=== PATIENT | male | born 1985 | race Caucasian/White ===

== ENCOUNTER → 2016-11-18 03:26 | Emergency (ER) | payer SELFPAY ==
[~2016-11-18 03:26] MED LIST: HYDROcodone/ACETAMIN 5-325 MG* 1 TAB PO ONE; Lidocaine 1%* 5 ML VIAL INJ ONE; Lidocaine 1%* 5 ML VIAL ONE; Tetan/Diph/Pertus SYR(Tdap)* 0.5 ML SYR(BOOSTRIX) use SYR IM ONE; ceFAZolin 1 GM ADVAN(*) 1 GM in NS 0.9% 50 ML* 50 ML IVPB ONE
[2016-11-18 04:01] VITALS: BP 163/96
--- NOTE | 2016-11-18 07:59 | ED ---
Davin Baer Alfonso, scribed for Jose Phillips MD on 11/18/16 at 0545 . Upper Extremity Pain - HPI Summary HPI Summary: This patient is a 31 year old M [facility] accompanied by male with a chief complaint of left thumb crushing injury one hour [employer]ENTER [employer]. Pt rates the pain 10 /10 in severity. Symptoms aggravated by movement and alleviated by nothing. Pt reports left thumb pain and bleeding. Patient is right hand dominant. Denies PMHx of DM. - History of Current Complaint Chief Complaint: EDLacSutureRecheck Stated Complaint: THUMB LAC Time Seen by Provider: 11/18/16 03:43 Hx Obtained From: Patient Mechanism Of Injury: Penetrating Trauma Onset/Duration: Started Hours Ago - 1 hr [employer] Timing: Constant Severity Initially: Moderate Severity Currently: Moderate Pain Location: Finger - Left thumb Aggravating Factor(s): Movement Alleviating Factor(s): Nothing Related History: Dominant Hand Right - Allergies/Home Medications Allergies/Adverse Reactions: Allergies Allergy/AdvReac Type Severity Reaction Status Date / Time No Known Allergies Allergy Verified 11/18/16 03:48 PMH/Surg Hx/FS Hx/Imm Hx Endocrine/Hematology History: Denies: Hx Diabetes Sensory History: Denies: Hx Deafness Opthamlomology History: Denies: Hx Legally Blind Infectious Disease History: No Infectious Disease History: Denies: Traveled Outside the [place] in Last 30 Days - Family History Known Family History: Negative: Cardiac Disease, Diabetes - Social History Alcohol Use: Occasionally Substance Use Type: Reports: None Smoking Status (MU): Smoker, Current Status Unknown Review of Systems Negative: Fever Musculoskeletal: Other - Positive left thumb crushing injury, pain, and bleeding. All Other Systems Reviewed And Are Negative: Yes Physical Exam - Summary Physical Exam Summary: The patient is well-nourished in no acute distress and in no acute pain. The skin is warm and dry and skin color reflects adequate perfusion. HEENT: The head is normocephalic and atraumatic. The pupils are equal and reactive. The conjunctivae are clear and without drainage. Nares are patent and without drainage. Mouth reveals moist mucous membranes and the throat is without erythema and exudate. The external ears are intact. The ear canals are patent and without drainage. The tympanic membranes are intact. Neck is supple with full range of motion and non-tender. There are no carotid bruits. There is no neck vein distension. Respiratory: Chest is non-tender. Lungs are clear to auscultation and breath sounds are symmetrical and equal. Cardiovascular: Heart is regular rate and rhythm. There is no murmur or rub auscultated. There is no peripheral edema and pulses are symmetrical and equal. Abdomen: The abdomen is soft and non-tender. There are normal bowel sounds heard in all four quadrants and there is no organomegaly palpated. Musculoskeletal: There is no back pain noted. Extremities are non-tender with full range of motion. Cannot access capillary refill due to there being no nail. There is no peripheral edema or calf tenderness elicited. Good pulses in left hand. Full ROM in thumb and IP joint of thumb. Obvious injury involving nail and nail bed. Laceration through nail bed and tip of finger. Neurological: Patient is alert and oriented to person, place and time. The patient has symmetrical motor strength in all four extremities. Cranial nerves are grossly intact. Deep tendon reflexes are symmetrical and equal in all four extremities. Decreased sensation at left thumb. Psychiatric: The patient has an appropriate affect and does not exhibit any anxiety or depression. 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 Pt rates the pain 10 /10 in severity. Symptoms aggravated by movement and alleviated by nothing. Pt reports left thumb pain and bleeding. Patient is right hand dominant. Denies PMHx of DM. Triage Information Reviewed: Yes Vital Signs On Initial Exam: Initial Vitals Temp Pulse Resp BP Pulse Ox 98.3 F 96 20 172/126 97 11/18/16 03:37 11/18/16 03:37 11/18/16 03:37 11/18/16 03:37 11/18/16 03:37 Vital Signs Reviewed: Yes Procedures - Laceration/Wound Repair 1 Location: upper extremity - Left thumb. Involves nail bed and tip of finger. Tourniquet time 40 minutes. Description: Stellate - Ivulsion Anesthesia: Digital - 6 CC Digital block, 1.0%, Lido Length, Depth and Shape: 4 cm laceration 1 cm wide 4 mm deep. Betadine Prep?: No - hibiclens Irrigated w/ Saline (ccs): 500 Laceration/Wound Explored: contaminated Closure: Single Layer Suture Type: Prolene - 4-0 Number of Sutures: 10 Layer Closure?: No Sterile Dressing Applied?: Yes Diagnostics - Vital Signs Vital Signs Temp Pulse Resp BP Pulse Ox 11/18/16 03:45 99.3 F 99 16 163/96 99 11/18/16 03:37 98.3 F 96 20 172/126 97 - Laboratory Lab Statement: Any lab studies that have been ordered have been reviewed, and results considered in the medical decision making process. - Radiology Hand XRay Radiology Interpretation Completed By: ED Physician - Tuft fracture most likely open. 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 Pt rates the pain 10 /10 in severity. Symptoms aggravated by movement and alleviated by nothing. Pt reports left thumb pain and bleeding. Patient is right hand dominant. Denies PMHx of DM. Hand XR reveals tuft fracture most likely open. Patient will be discharged with Hammond, Keflex, and follow up from Dr. Deras in two days. Pt is agreeable with this plan. - Diagnoses Differential Diagnosis/HQI/PQRI: Positive: Fracture (Open), Laceration Provider Diagnoses: Open fracture of tuft of distal phalanx of left thumb, 4 cm nail bed laceration with repair, evulsion laceration Discharge - Discharge Plan Condition: Stable Disposition: HOME Prescriptions: Cephalexin CAP* [Keflex 500 CAP*] 500 mg PO QID #28 cap Hydrocodone-Acetaminophen [Hammond 5-325 mg] 1 tab PO Q6HR PRN #20 tab MDD 4 PRN Reason: Pain Patient Education Materials: Care For Your Stitches (ED), Laceration (ED) Referrals: Dl Deras MD [Medical Doctor] - 2 Weeks Additional Instructions: Keep dressing in place until rechecked in two days. The documentation as recorded by the Davin joiner Alfonso accurately reflects the service I personally performed and the decisions made by me, Jose Phillips MD.
--- NOTE | 2016-11-18 10:24 | RAD ---
INDICATION: Crush injury to the LEFT thumb. Pain. COMPARISON: No relevant prior exams available on the [facility] for comparison. TECHNIQUE: AP, lateral, and oblique views LEFT hand. REPORT: Overlying bandage limits assessment. Suggestion of mild comminuted fracture involving the distal margin of the tuft of the distal phalanx. Overlying soft tissue swelling. Normal articular alignment. IMPRESSION: Suggestion of comminuted mildly displaced fracture involving the distal margin of the tuft of the distal phalanx. The fracture may be compound as the fragment approximating the skin surface. Correlate with clinical assessment and consider repeat radiographs with the bandage removed.
== END | disposition home or self-care (01) ==
LOC: ED 03:26
DX: S62.522B Displaced fracture of distal phalanx of left thumb, initial encounter for open fracture (principal); S61.112A Laceration without foreign body of left thumb with damage to nail, initial encounter; X58.XXXA Exposure to other specified factors, initial encounter; Y92.9 Unspecified place or not applicable
CPT/HCPCS: 11760; 90715; 99282; J0690

== ENCOUNTER 2018-09-17 03:19 | Emergency (ER) | payer BC, OTHER ==
[2018-09-17 03:25] VITALS: BP 162/107
--- NOTE | 2018-09-17 03:46 | ED ---
Allergic Reaction/Systemic - HPI Summary HPI Summary: The patient is a 32 y/o M presenting to [facility] with a chief complaint of gradual onset pruritic hives covering the chest, groin, and back starting yesterday at 1030 that do not move around. He states that he isn't sure where the hives came from because he isn't allergic to anything. He used an ointment to treat the hives to no relief. He reports starting new pills two weeks ago, and there wasn' t anything new in the environment or that he ate. The pain is currently rated 2/ 10 in severity. He denies nausea, vomiting, CP, abd pain, and SOB. No hx of this before. - History of Current Complaint Chief Complaint: EDAllergicReaction Time Seen by Provider: 09/17/18 03:40 Hx Obtained From: Patient Onset/Duration: Sudden Onset, Started hours ago, Still Present Timing: Lasting Hours Severity Initially: Mild Severity Currently: Moderate Pain Intensity: 2 Pain Scale Used: 0-10 Numeric Location: Other - chest, groin, back Character: Pruritus, Hives Aggravating Factor(s): Nothing Alleviating Factor(s): Nothing - medicated ointment did not allevaite the symptoms Associated Signs And Symptoms: Positive: Other: - NEGATIVE: nausea, vomiting, abd pain, CP, SOB - Allergies/Home Medications Allergies/Adverse Reactions: Allergies Allergy/AdvReac Type Severity Reaction Status Date / Time No Known Allergies Allergy Verified 09/17/18 03:41 Home Medications: Home Medications Lisinopril TAB* [Prinivil TAB 10 MG*] 10 mg PO DAILY 09/17/18 [History Confirmed 09/17/18] buPROPion TAB* [Wellbutrin TAB*] 150 mg PO BID 09/17/18 [History Confirmed 09/17] PMH/Surg Hx/FS Hx/Imm Hx Endocrine/Hematology History: Denies: Hx Diabetes Sensory History: Denies: Hx Legally Blind, Hx Deafness Opthamlomology History: Denies: Hx Legally Blind - Surgical History Surgery Procedure, Year, and Place: none - Immunization History Date of Tetanus Vaccine: unk Date of Influenza Vaccine: fall 2017 Infectious Disease History: No Infectious Disease History: Denies: Traveled Outside the [place] in Last 30 Days - Family History Known Family History: Negative: Cardiac Disease, Diabetes - Social History Alcohol Use: Occasionally Hx Substance Use: No Substance Use Type: Reports: None Hx Tobacco Use: Yes Smoking Status (MU): Smoker, Current Status Unknown Do You Chew or Dip Tobacco: No Have You Chewed or Dipped Tobacco in the LAST YEAR: No Have You Smoked in the Last Year: No Review of Systems Negative: Chest Pain Negative: Shortness Of Breath Negative: Abdominal Pain, Vomiting, Nausea Positive: Other - pruritic hives on the chest, groin, and back All Other Systems Reviewed And Are Negative: Yes Physical Exam - Summary Physical Exam Summary: Appearance: Well-appearing, Well-nourished, lying in bed comfortably Skin: Warm, dry, numerous urticaria lesions on the left and right chest under the armpits, in the groin, and on the back Eyes: sclera anicteric, no conjunctival pallor ENT: mucous membranes moist, pharynx appears normal Neck: Supple, nontender Respiratory: Clear to auscultation, no signs of respiratory distress Cardiovascular: Normal S1, S2. No murmurs. Normal distal pulses in tibial and radial bilaterally. Abdomen: Soft, nontender, normal active bowel sounds present Musculoskeletal: Normal, Strength/ROM Intact Neurological: A&Ox3, awake and alert, mentation is normal, speech is fluent and appropriate Psychiatric: affect is normal, does not appear anxious or depressed Triage Information Reviewed: Yes Vital Signs On Initial Exam: Initial Vitals Temp Pulse Resp BP Pulse Ox 97.5 F 119 18 162/107 99 09/17/18 03:20 09/17/18 03:20 09/17/18 03:20 09/17/18 03:20 09/17/18 03:20 Vital Signs Reviewed: Yes Diagnostics - Vital Signs Vital Signs Temp Pulse Resp BP Pulse Ox 09/17/18 03:20 97.5 F 119 18 162/107 99 - Laboratory Lab Statement: Any lab studies that have been ordered have been reviewed, and results considered in the medical decision making process. Allergic Reaction Course/Dx - Course Course Of Treatment: The patient is a 32 y/o M presenting to [facility] with a chief complaint of gradual onset pruritic hives covering the chest, groin, and back that do not move around starting yesterday at 1030. Upon physical exam, the patient exhibits numerous urticaria lesions on the left and right chest under the armpits, in the groin, and on the back. In the ED course, the patient was administered Zyrtec. He is diagnosed with urticaria. He will be discharged home with follow up with PCP and rx with Zyrtec. He agrees with this plan and understands the need for return to the ED for any new or worsening symptoms. - Diagnoses Provider Diagnoses: Urticaria Discharge - Sign-Out/Discharge Documenting (check all that apply): Patient Departure - Patient will be discharged home. Patient Received Moderate/Deep Sedation with Procedure: No - Discharge Plan Condition: Good Disposition: HOME Prescriptions: Cetirizine* [ZyrTEC 10 MG TAB*] 10 mg PO DAILY #15 tab Patient Education Materials: Urticaria (ED) Referrals: Juno Flores MD [Medical Doctor] - Additional Instructions: Take an OTC antihistamine like benadryl, claritin or zyrtec. The rash may come and go until burning itself out. I wouldn't bother with topical medication, you really have to take something systemic. - Billing Disposition and Condition Condition: GOOD Disposition: Home - Attestation Statements Document Initiated by Jose J: Yes Documenting Scribe: Michelle Salazar Provider For Whom Jose J is Documenting (Include Credential): Dr. João Hwang MD Scribe Attestation: I, bobby Kaspered for Dr. João Hwang MD on 09/18/18 at 0448. Scribe Documentation Reviewed: Yes Provider Attestation: The documentation as recorded by the Michelle joiner accurately reflects the service I personally performed and the decisions made by me, Dr. João Hwang MD Status of Scribe Document: Viewed
[2018-09-17] MEDS ORDERED: LoraTADine TAB(NF) 10 MG TAB (AUTOSUB to CETIRIZINE) PO ONE (03:57)
[2018-09-17] MEDS ORDERED: Cetirizine* 10 MG TAB PO ONE (04:00)
== END 2018-09-17 04:09 | disposition home or self-care (01) ==
LOC: ED 03:19
DX: L50.9 Urticaria, unspecified (principal); Z87.891 Personal history of nicotine dependence
CPT/HCPCS: 99282; A9270-GY